=== PATIENT | female | born 1970 | race Caucasian/White ===

== ENCOUNTER 2017-10-06 19:06 | Emergency (ER) | payer OTHER ==
[~2017-10-06] VITALS: Ht 165.1 cm; Wt 104.3 kg
[2017-10-06] MEDS ORDERED: BUPROPION XL150 MG PO (19:22)
[2017-10-06] MEDS ORDERED: ESCITALOPRAM OX20 MG PO (19:23)
[2017-10-06] MEDS ORDERED: SUDOGEST120 MG PO (19:23)
[2017-10-06] MEDS ORDERED: LEVOTHYROXINE150 MCG PO (19:23)
[2017-10-06] MEDS ORDERED: GABAPENTIN300 MG PO (19:23)
[2017-10-06] MEDS ORDERED: HYDROCODON-ACE1 EAC8 PO (19:24)
[2017-10-06] MEDS ORDERED: ZYRTEC10 MG PO (19:24)
[2017-10-06] MEDS ORDERED: ONE DAILY WITH1 EAC1 PO (19:25)
[2017-10-06] MEDS ORDERED: VITAMIN D1000 UNI1 PO ×2 (19:26)
[2017-10-06] MEDS ORDERED: PENICILLIN V P500 MG PO (19:32)
--- OUTSIDE RECORDS SUMMARY | 2017-10-06 19:32 | XMS | Clinical Summary ---
Demographics + + + | Address | [address] | | | [place] [address] | + + + | Home Phone | | + + + | Preferred Language | Unknown | + + + | Marital Status | | + + + | Muslim Affiliation | Unknown | + + + | Race | White | + + + | Ethnic Group | Not or | + + + Author + + + | Author | NON REVENUE LOCATIONS | + + + | Organization | NON REVENUE LOCATIONS | + + + | Address | Unknown | + + + | Phone | Unavailable | + + + Support +------+ + + + +-------+ | Name | Relationship | Address | Phone | +------+ + + + +-------+ ECON | [address] | | [place] | [address] | +------+ + + + +-------+ Care Team Providers + +------+ + | Care Cardiology Consultant Name | Role | Phone | + +------+ + | Camron Fletcher DO | PP | | + +------+ + Source Comments MAN is fully live [facility] and [facility], [facility] Allergies + + + + + + | Active Allergy | Reactions | Severity | Noted | Comments | | | | | Date | | + + + + + + | Piroxicam | Nausea/Vomiting | | 03/20/20 | | | | | | 06 | | + + + + + + | Minocycline | | | 01/30/20 | | | | | | 11 | | + + + + + + Current Medications + + +-------+---------+------+------+-------+ | Prescription | Sig. | Disp. | Refills | Star | End | Statu | | | | | | t | Date | s | | | | | | Date | | | + + +-------+---------+------+------+-------+ | Prasterone, DHEA, | Take by mouth once | | | 07/0 | | Activ | | (DHEA) 25 mg Oral | daily. | | | 20 | | e | | Tablet | | | | 11 | | | + + +-------+---------+------+------+-------+ | CHROMIUM | Take by mouth. 1000 | | | | | Activ | | PICOLINATE ORAL | mcg daily | | | | | e | + + +-------+---------+------+------+-------+ | MAGNESIUM ORAL | Take by mouth. " | | | | | Activ | | | magnesium w/ | | | | | e | | | chelated zinc" | | | | | | | | 400/15 mg , Two | | | | | | | | tabs twice daily | | | | | | + + +-------+---------+------+------+-------+ | MULTIVIT WITH | Take by mouth. | | | | | Activ | | CALCIUM,IRON,MIN | daily | | | | | e | | (ONE-A-DAY WOMENS | | | | | | | | FORMULA ORAL) | | | | | | | + + +-------+---------+------+------+-------+ | ASCORBIC ACID | Take by mouth. 1000 | | | | | Activ | | (VITAMIN C ORAL) | mg twice daily | | | | | e | + + +-------+---------+------+------+-------+ | potassium chloride | Take 8 mEq by mouth | | | | | Activ | | SR (KLOR-CON 10) 10 | once daily. | | | | | e | | mEq Oral Tablet | | | | | | | | Extended Release | | | | | | | + + +-------+---------+------+------+-------+ | | Take 1 Tab by mouth. | | | | | Activ | | HYDROcodone-acetamin | NTE 6 per day | | | | | e | | ophen 10-325 mg Oral | | | | | | | | Tablet | | | | | | | + + +-------+---------+------+------+-------+ | baclofen 10 mg | Take by mouth three | | | | | Activ | | Oral Tablet | times daily. 1-2 | | | | | e | | | tablets three times | | | | | | | | a day as needed | | | | | | + + +-------+---------+------+------+-------+ | levothyroxine | Take 150 mcg by | | | | | Activ | | (LEVOXYL) 150 mcg | mouth once daily. | | | | | e | | Oral Tablet | | | | | | | + + +-------+---------+------+------+-------+ | | Take by mouth once | | | | | Activ | | GUAIFENESIN/P-EPHED | daily. | | | | | e | | HCL (MUCINEX D ORAL) | | | | | | | + + +-------+---------+------+------+-------+ | Cetirizine | Take by mouth once | | | 07/0 | | Activ | | (ZYRTEC) 10 mg Oral | daily. | | | 20 | | e | | Capsule | | | | 11 | | | + + +-------+---------+------+------+-------+ | gabapentin 400 mg | Take 600 mg by mouth | | | 07/2 | | Activ | | Oral Capsule | once daily at | | | 120 | | e | | | bedtime. Takes 3 | | | 11 | | | | | tabs during the day | | | | | | | | and 2 at bedtime | | | | | | + + +-------+---------+------+------+-------+ | escitalopram | Take 20 mg by mouth | | | | | Activ | | oxalate 20 mg oral | once daily. | | | | | e | | tablet | | | | | | | + + +-------+---------+------+------+-------+ Active Problems + + + | Problem | Noted Date | + + + | Major depressive disorder, recurrent episode, mild (HCC) | 03/06/2012 | + + + | Lumbar radiculopathy | 06/13/2011 | + + + | Major depressive disorder, recurrent episode, moderate (HCC) | 04/24/2011 | + + + | Lumbosacral spondylosis without myelopathy | 02/27/2011 | + + + | Failed back syndrome, lumbar | 02/27/2011 | + + + | Radicular pain | 09/24/2006 | + + + | Anxiety | 06/18/2006 | + + + | Hypothyroidism | 06/18/2006 | + + + | Hypercholesterolemia | 06/18/2006 | + + + | Obesity | 06/18/2006 | + + + | LBP (low back pain) | 2006 | + + + Family History + + +------+ + | Medical History | Relation | Name | Comments | + + +------+ + | Allergies | Brother | | | + + +------+ + | GI | Brother | | | + + +------+ + | Alcohol/Drug | Father | | | + + +------+ + | Allergies | Father | | | + + +------+ + | Heart Disease | Father | | | + + +------+ + | Stroke | Maternal | | | | | Grandfath | | | | | er | | | + + +------+ + | Arthritis | Maternal | | | | | Grandmoth | | | | | er | | | + + +------+ + | Additional Family | Mother | | Emphysema | | History | | | | + + +------+ + | Allergies | Mother | | | + + +------+ + | Asthma | Mother | | | + + +------+ + | Heart Disease | Mother | | | + + +------+ + | Thyroid | Mother | | | + + +------+ + | Arthritis | Paternal | | | | | Grandmoth | | | | | er | | | + + +------+ + | Allergies | Sister | | | + + +------+ + | Anesthesia | Sister | | | + + +------+ + | Asthma | Sister | | | + + +------+ + | GI | Sister | | | + + +------+ + | Headache | Sister | | | + + +------+ + | Thyroid | Sister | | | + + +------+ + + +------+--------+ + | Relation | Name | Status | Comments | + +------+--------+ + | Brother | | | | + +------+--------+ + | Father | | | | + +------+--------+ + | Maternal Grandfather | | | | + +------+--------+ + | Maternal Grandmother | | | | + +------+--------+ + | Mother | | | | + +------+--------+ + | Paternal Grandmother | | | | + +------+--------+ + | Sister | | | | + +------+--------+ + Social History + + + +--------+------+ | Tobacco Use | Types | Packs/Day | Years | Date | | | | | Used | | + + + +--------+------+ | Current Every Day | Cigarettes | 1 | | | | Smoker | | | | | + + + +--------+------+ + +---+---+---+ | Smokeless Tobacco: | | | | | Never Used | | | | + +---+---+---+ + + +---------+ + | Alcohol Use | Drinks/We | oz/Week | Comments | | | ek | | | + + +---------+ + | Yes | | | occasiional | + + +---------+ + + + + | Sex Assigned at | Date Recorded | | | | + + + | Not on file | | + + + Last Filed Vital Signs + + + + | Vital Sign | Reading | Time Taken | + + + + | Blood Pressure | 101/74 | 01/09/2012 2:41 PM PDT | + + + + | Pulse | 115 | 01/09/2012 2:41 PM PDT | + + + + | Temperature | 37.2 C (98.9 F) | 07/18/2014 9:00 AM PST | + + + + | Respiratory Rate | 14 | 01/09/2012 2:41 PM PDT | + + + + | Oxygen Saturation | 96% | 03/14/2011 8:05 AM PDT | + + + + | Inhaled Oxygen | - | - | | Concentration | | | + + + + | Weight | 79.4 kg (175 lb) | 07/18/2014 9:00 AM PST | + + + + | Height | 165.1 cm (5' 5") | 07/18/2014 9:00 AM PST | + + + + | Body Mass Index | 29.12 | 07/18/2014 9:00 AM PST | + + + + Plan of Treatment + + + + + | Health Maintenance | Due Date | Last Done | Comments | + + + + + | INFLUENZA VACCINE | | | | | (FLU SHOT) | 7 | | | + + + + + Results Not on filefrom Last 3 Months
--- OUTSIDE RECORDS SUMMARY | 2017-10-06 19:32 | XMS | Clinical Summary ---
Demographics + + + | Address | [address] | | | [place] [address] | + + + | Home Phone | | + + + | Preferred Language | Unknown | + + + | Marital Status | | + + + | Faith Affiliation | Unknown | + + + [...] [address] | | [place] | [address] | +------+ + + + +-------+ Care Team Providers + +------+ + | Care Senior Trainer Name | Role | Phone | + +------+ + | Camron Fletcher DO | PP | | + +------+ + Source Comments [facility] Allergies + + + + + [...]
== END 2017-10-06 20:26 | disposition home or self-care (01) ==
LOC: ED 19:06
DX: S01.511A Laceration without foreign body of lip, initial encounter (principal); Z88.8 Allergy status to other drugs, medicaments and biological substances; Z88.1 Allergy status to other antibiotic agents; Z23 Encounter for immunization; Z79.899 Other long term (current) drug therapy; W20.8XXA Other cause of strike by thrown, projected or falling object, initial encounter; Y93.64 Activity, baseball
CPT/HCPCS: 90471; 90715; 99283

== ENCOUNTER 2019-01-04 16:34 | Inpatient (IN) | payer OTHER ==
[~2019-01-04] VITALS: Ht 165.1 cm; Wt 99.8 kg
[~2019-01-04 16:34] MED LIST: BUPROPION XL150 MG PO; ESCITALOPRAM OX20 MG PO; GABAPENTIN300 MG PO; HYDROCODON-ACE1 EAC8 PO; LEVOTHYROXINE150 MCG PO; ONE DAILY WITH1 EAC1 PO; PENICILLIN V P500 MG PO; SUDOGEST120 MG PO; VITAMIN D1000 UNI1 PO; ZYRTEC10 MG PO
[2019-01-15] MEDS ORDERED: DIPHENHYDRAMINE50 M1 PO (09:07)
[2019-01-15] MEDS ORDERED: FLONASE ALLERG9.9 ML NAS (09:08)
--- NOTE | 2019-01-15 18:45 | NUR ---
01/15/191844 Josselyn Richard 181- PT ARRIVES TO PACU ON 3 L VIA MASK AND IS AWAKE AND RESPONDS TO VERBAL STIMULUS. SURGICAL DRESSING C/D/I. PT HAD GENERAL ANESTHESIA. VSS. SATS >90%. 1823- PT'S VOICE MELINDA REYES AT BEDSIDE TO ADMINSTER RACEMIC EPI NEB TREATEMNT. PT SATS 100% ON RA. PT DROWSY AND DISORIENTED BUT ANSWERS QUESTIONS APPROPRIATELY. PT DENIES PAIN/NAUSEA AND REPORTS NEED TO VOID BUT CATHERTER IN PLACE. 1839- VSS. RA SATS REMAIN >90%. PT MORE AWAKE AND IS EMOTIONAL. PT RESPONDS TO VERBAL STIMULS AND ANSWERS QUESTIONS APPROPRIATELY. PT DENIES PAIN/NAUSEA.
--- NOTE | 2019-01-15 20:35 | NUR ---
FIREPOT OPERATOR AND TENDER ROUNDING NOTE. PT RESTING IN BED WITH SISTER AT BEDSIDE. PRIMARY RN IN ROOM WITH PT. PT EXPRESSING CONCERN REGARDING DISCOMFORT DUE TO CATHETER. PRIMARY RN ADMINISTERED PRN PAIN MEDICATION. PT AND HER SISTER DENY FURTHER NEEDS AT THIS TIME. CALL LIGHT IN REACH.
--- NOTE | 2019-01-15 20:40 | NUR ---
PATIENT COMPLAINED OF BURNING PAIN AT KEITH SITE 9/10 ON PAIN SCALE. PATIENT STATES " I DON'T UNDERSTAND WHY THERE IS A KEITH WHEN I DIDN'T HAVE MESH PLACED" PROVIDED PATIENT WITH REASSURANCE AND EDUCATION, DISCUSSED BED REST ORDER AND THE NEED FOR THE KEITH CATH. PATIENT APPEARS AGITATED AND RESTLESS, SISTER IN ROOM REQUESTING FOR KEITH TO BE REMOVED OR GIVEN NUMBING MEDICINE. DISCUSSED WITH PATIENT AND SISTER THAT NURSE JUST ADMINISTERED OXYCODONE AND PHENERGAN IV, AND SHOULD ALLOW FOR MEDICINE TO WORK. PATIENT VERBALIZED UNDERSTANDING. PROVIDED PATIENT WITH ICE WATER, JELLO, APPLE SAUCE, AND SALTINE CRACKERS.
--- NOTE | 2019-01-15 21:45 | NUR ---
PAIN MEDICAITON EFFECTIVE. PATIENT REPORTS BURNING SENSATION DECREASED TO WAVES AT A TIME. REQUESTING KEITH TO BE REMOVED, ANXIOUS WITH BLOOD IN TUBING. REASSURED PATIENT URINE IS CLEAR, AND THERE IS NO NEW BLOOD IN TUBING. FAMILY IN ROOM, PATIENT LAUGHING AND WATCHING TELVISION. REQUESTED COFFEE, PROVIDED HER AND FAMILY COFFEE. VS STABLE. NO NEW BLOODY DRAINAGE IN VAGINAL AREA. WIPED OLD BLOOD AWAY. REASSURED PATIENT IS HAVING POST OP SURGICAL PAIN SYMPTOMS.
--- NOTE | 2019-01-15 22:35 | NUR ---
patient used call light to state she was hungry. Her diet is now regular diet. She recieved a sandwich box and a sherbert ice cream cup. nothing further needed at this time.
--- NOTE | 2019-01-15 22:37 | NUR ---
RADHA Ramirez completed VS and I&Os.
--- NOTE | 2019-01-15 22:53 | NUR ---
PATIENT RATES PAIN 2/10 ON PAIN SCALE. LAUGHING AND EATING THE HOSPITAL'S LUNCH BOX SPECIAL. PROVIDED PATIENT WITH COKE AND FRESH ICE WATER. VS STABLE. URINE OUTPUT GOOD. NO NEW BLOODY DRAINAGE. DISCUSSED POC AND PAIN MANAGEMENT GOALS AND PLAN. NO OTHER NEEDS AT THIS TIME. CALL LIGHT WITHIN REACH.
--- NOTE | 2019-01-16 01:06 | NUR ---
PATIENT DRINKING FLUIDS WELL AND TOLERATING SOLID FOODS. CHANGED DIET ORDER TO REGULAR AND DC IV FLUIDS. ADMINISTERED PAIN MEDICATION FOR PAIN 5/10 ON PAIN SCALE. NOTED CLEAR YELLOW URINE FROM KEITH. DRESSING TO BREAST C/D/I.
--- NOTE | 2019-01-16 02:00 | NUR ---
PATIENT TURNED TO SIDE, DRESSING AT UNBILICUS SATURATED. CHANGED WITH NEW GAUZE AND MEDIPORE TAPE. PROVIDED PATIENT WITH HEAT PACK FOR BACK,COMPLAINTS OF BED BEING UNCOMFORTABLE AND CAUSING CHRONIC BACK PAIN TO INCREASE. PROVIDED ICE WATER AND COLA.
--- NOTE | 2019-01-16 05:45 | NUR ---
PATIENT RESTED WELL LAST FEW HOURS, REQUESTING PAIN MEDICATION. CONTINUES TO TOLERATE REGULAR FOODS, AND PLENTY OF FLUIDS. GOOD URINE OUTPUT. DRESSING C/D/I TO ALL FOUR SITES. CALL LIGHT WITHIN REACH, NO OTHER NEEDS AT THIS TIME.
--- NOTE | 2019-01-16 06:20 | NUR ---
patients VS and I&Os complete.
--- NOTE | 2019-01-16 06:35 | NUR ---
PATIENT SURGICAL SITES TO ABDOMEN C/D/I, REINFORCED SITE AT UBILICUS ONCE. PATIENT PAIN WELL CONTROLLED WITH OXYCODONE. TOLERATING REGULAR FOOD. KEITH CATHETER, CLEAR YELLOW URINE. VS STABLE. CALLS APROPRIATLEY. AAOX3. CURRENT ORDER FOR BEDREST.
--- NOTE | 2019-01-16 07:46 | NUR ---
REPORT RECEIVED FROM JIGMAKER RN. PT AWAKE IN BED. DENIES PAIN. CALL LIGHT IN REACH. DENEIS NEEDS.
--- NOTE | 2019-01-16 08:13 | NUR ---
UPDATED BOARD AND FILLED PATIENTS WATER CUP WITH ICE WATER, PATIENT DIDNT NEED ANY ASSISTANCE AT THIS TIME WILL RECHECK.
--- NOTE | 2019-01-16 08:24 | OR ---
[facility] [address], [place] [address] Signed DATE OF OPERATION: 01/15/2019 SURGEON: Kody Kendall MD PREOPERATIVE DIAGNOSIS: Left palpable breast masses x4. POSTOPERATIVE DIAGNOSIS: Left palpable breast masses x4. PROCEDURE PERFORMED: Left upper outer quadrantectomy/partial mastectomy. ESTIMATED BLOOD LOSS: None. INDICATIONS: Brandy is a 48-year-old lady, at 5 feet 5 inches, 219 pounds with a body mass index of 36. I have known Brandy for years through her sons playing sports together and so forth. 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 This was in 2008. She has had previous excisional biopsies back in 1998 and 2004. Each time the circum, there was a curvilinear incision used from around the 12 o'clock to about the 3 o'clock position about 2 cm cephalad to the left nipple areolar complex. She now has 4 concerning areas in that same breast, 3 of which seemed to be together. The others more towards the 11 o'clock position. Radiologist felt these were too large in that the same area and be too high. Consequently, I was asked to perform excisional biopsies. In the meantime, Brandy has also seen her insulation nozzleman and is planning on having her hysterectomy and bladder suspension. She wanted to have him both done on the same day. In the office, I could certainly feel these 3 masses in the upper outer quadrant, but the mass at the 11 o'clock position really was not palpable. I explained to Brandy we would look for that at the time of surgery once the skin was opened and hopefully we could find it and excise it. Otherwise, it might need a needle biopsy in the future if it would change whatsoever in size and in character. Brandy has been through multiple breast surgeries. I explained to Brandy that this is large enough she may end up with a contour defect depending on intraoperative findings. She is also aware that if someone has enough of fibroadenomas, they may benefit from a full mastectomy with reconstruction. She understands these are excision biopsies and not meant to be cancer surgery. Depending on pathology results, she may or may not need additional surgery. I explained to Brandy I probably will use an incision extending up the outer quadrant towards the axilla and Electronically Signed By: KODY KENDALL MD 01/16/19 0824 PATIENT NAME: BRANDY LANZA OPERATIVE REPORT DATE OF : 74 REPORT #: [id number] PHYSICIAN: KODY KENDALL MD PCP: NO PRIMARY CARE PHYSICIAN REPORT IS CONFIDENTIAL AND NOT TO BE RELEASED WITHOUT AUTHORIZATION [facility] [address], [place] [address] Signed that where I could bring the inferior portion of the breast up and help fill in the space. She understands breast surgery quite well. She has been through it several times. She knows there is risk including, but not limited to bleeding, infection, scarring, change in contour of the skin, and possible need for additional procedures. She expressed understanding and wished to proceed. PROCEDURE NOTE: I met with Brandy in our preop area along with our nurse. Once again, we could easily find this large mass in the upper outer quadrant representing probably 3 of those lesions. Once again, we could not feel a lesion at the 11 o'clock position. We marked that left breast appropriately. After this, Brandy was taken in the operating room and placed in the supine position under general endotracheal tube anesthesia. She was given preoperative antibiotics along with subcutaneous heparin. SCDs were utilized. She was then prepped and draped in the usual sterile fashion. We made a radial incision out the upper outer quadrant towards the axilla over top of that mass and we excised this large multilobulated lesion, which appeared to be a fibroadenoma. After that, there was a bilobed fibroadenoma just inferior to that and we excised that and then on the medial side, we found a palpable lesion. We excised that sure enough it was cystic and that might very well then the lesion described at 11 o'clock position. After this, local anesthetic was copiously injected in the wound. The wound was irrigated and suctioned out until clear. We used 2-0 PDS suture to bring the breast tissue together and minimize the space. The dermis was then reapproximated with interrupted 3-0 subcuticular Monocryl sutures. The skin edges were reapproximated with running 6-0 fast absorbing plain gut suture. Dry gauze and tape were then applied. This represents the termination of her breast surgery. Her gynecologic surgery will be dictated by Dr. Terrell. Kody Kendall MD ALB/MODL /[id number] cc: MD Kody White MD Electronically Signed By: KODY KENDALL MD 01/16/19 0824 PATIENT NAME: BRANDY LANZA OPERATIVE REPORT DATE OF : 74 REPORT #: [id number] PHYSICIAN: KODY KENDALL MD PCP: NO PRIMARY CARE PHYSICIAN REPORT IS CONFIDENTIAL AND NOT TO BE RELEASED WITHOUT AUTHORIZATION [address] [address] Signed Ashley Rocha MD Copies: VIMAL TERRELL MD, ANDREW L MD ~ Electronically Signed By: KODY KENDALL MD 01/16/19823 PATIENT NAME: BRANDY LANZA OPERATIVE REPORT DATE OF : 74 REPORT #: [id number] PHYSICIAN: KODY KENDALL MD PCP: NO PRIMARY CARE PHYSICIAN REPORT IS CONFIDENTIAL AND NOT TO BE RELEASED WITHOUT AUTHORIZATION
--- NOTE | 2019-01-16 08:58 | NUR ---
ROUNDED WITH DR MENDEZ. PLAN OF CARE DISCUSSED. QUESTIONS AND CONCERNS ADRESSED.
--- NOTE | 2019-01-16 09:07 | OR ---
[facility] [address] [place] [id number] Signed DATE OF OPERATION: 01/15/2019 SURGEON: See Terrell MD Patient of Dr. Terrell and Dr. Bosch. PREOPERATIVE DIAGNOSES: Uterine fibroids, heavy menstrual bleeding, pelvic pain, dysmenorrhea, and stress urinary incontinence. POSTOPERATIVE DIAGNOSES: Uterine fibroids, heavy menstrual bleeding, pelvic pain, dysmenorrhea, and stress urinary incontinence, worsening cystocele and rectocele. PROCEDURES PERFORMED: Total laparoscopic hysterectomy with bilateral salpingectomy, left oophorectomy, and cystoscopy. SAS PROGRAMMER ANALYST: Dr. Solano. ANESTHESIA: General. ESTIMATED BLOOD LOSS: 100 mL. SPECIMEN: Fibroid uterus plus fallopian tubes. CULTURES: None. DRAINS: Gibson to bladder. PACKING: Sterile gauze with antibiotic cream in the vagina. FINDINGS: Electronically Signed By: SEE TERRELL MD 01/16/19 0907 PATIENT NAME: CLAUDIO LANZA OPERATIVE REPORT DATE OF : 74 REPORT #: [id number] PHYSICIAN: SEE TERRELL MD PCP: NO PRIMARY CARE PHYSICIAN REPORT IS CONFIDENTIAL AND NOT TO BE RELEASED WITHOUT AUTHORIZATION [facility] [address] [place] [phone] Signed Cervix, thick, closed. Uterus, 12-week size fibroid uterus taking up most of the pelvis. The anterior cul-de-sac was free of any adhesions, posterior cul-de-sac was free of any adhesions, difficult to see due to the fibroids. The left fallopian tube had normal fimbriated end. Midportion of the tube was missing with a small Falope ring present from previous tubal ligation. The left ovary was adherent to the side of the uterus along its entire length. There were no other adhesions. The right tube was normal in length, again with midportion of the tube missing and the Falope ring present. Right ovary normal in size and shape without any evidence of endometriosis or adhesions. Rest of pelvis was free of any masses or adhesions. There was slight hypermobile urethra, but bladder and rectum did not appear to be descending with the cervix up high, probably due to the fibroid uterus. COMPLICATIONS: None. Additional note: Excisional breast biopsies were done by Dr. Bosch during the same anesthesia, but prior to this surgery, please see his dictation for that part of the procedure. DESCRIPTION OF PROCEDURE: The patient was brought to the operating room, placed in supine position. After adequate general anesthesia was obtained, was prepped and draped in usual sterile fashion. After Dr. Bosch finished with breast biopsies, the patient was re-prepped and was placed in dorsal lithotomy position, prepped and draped in usual sterile fashion. A bimanual exam was done and then a weighted speculum was placed in the vagina. The patient has a Gibson catheter already in place. The anterior lip of the cervix was grasped with an Allis clamp. The uterine cavity sounded to 12 cm. The Marco Vasco uterine manipulator was inserted through the cervix into the fundus of the uterus and the balloon filled with water. The Allis clamp and weighted speculum were removed and the cervical cap slid up around the cervix and the vaginal cup slid up and pushed up against the cervical cap to hold this against the cervix and the vaginal cup tightened in place. A finger was used to palpate and make sure the cervical cap was in the correct place and position around the cervix. Attention was then drawn to the abdomen. A small infraumbilical skin incision was made after injecting area with 0.25% Marcaine. Subcutaneous tissue was dissected with Metzenbaum scissors. The fascia was grasped, hemostats elevated, nicked with Metzenbaum scissors, and extended in a transverse fashion using Metzenbaum scissors. Finger dissection was then used to separate the muscle and open the peritoneum. An S retractor was inserted into the incision and spun in 360 degree fashion showing no adhesions and so the Jin cannula and sleeve entered the abdomen under direct visualization. Retention stitches of 0 Vicryl suture were Electronically Signed By: SEE TERRELL MD 01/16/19 0907 PATIENT NAME: CLAUDIO LANZA OPERATIVE REPORT DATE OF : 74 REPORT #: [id number] PHYSICIAN: SEE TERRELL MD PCP: NO PRIMARY CARE PHYSICIAN REPORT IS CONFIDENTIAL AND NOT TO BE RELEASED WITHOUT AUTHORIZATION [facility] [address] [place] [id number] Signed placed in the fascia above and below the incision. The Jin cannula and sleeve entered the abdomen under direct visualization. After removing S retractor, the balloon of the sleeve was filled with air and the other portion slid down against the abdominal wall and tightened in place. The two retention stitches were then used to hold the sleeve in place and the trocar removed. The laparoscope with video attachment entered the abdomen under direct visualization. The above findings were noted. On the left side, just below the level of the umbilicus approximately 10 cm lateral to the midline, a small skin incision was made with a scalpel after transilluminating the area to avoid any vessels injecting the area with 0.25% Marcaine making a small skin incision. A bladed 5-mm trocar and sleeve entered the abdomen under direct visualization. Trocar was removed and the balloon of the sleeve filled to hold the trocar in place. On the right side, again just below the level of the umbilicus, approximately 10 cm lateral to the midline, abdominal wall was transilluminated to avoid any vessels. Skin incision was made and a Veress needle with expandable sleeve entered the abdomen under direct visualization. The Veress needle was removed and expandable 10 mm trocar and sleeve was placed through the expandable sleeve and the trocar removed. Blunt graspers were inserted through both lateral incisions and the entire pelvis inspected and the above findings again confirmed. The two fallopian tubes were removed by carefully grasping the fallopian tube, elevating this, and then cauterizing and cutting the mesosalpinx using the LigaSure Bipolar [place] forceps, both tubes and the Falope rings attached were removed and pulled through the right lateral port. At this point, the right upper pedicle including the round ligament, utero-ovarian ligament were cauterized in several places individually and cut between. This was taken down to the broad ligament and then the anterior and posterior leaves of broad ligament cauterized and cut down the side of the broad ligament and extending medially anterior and posterior at the level of the cervical cap. On the left side, the ovary was noted to be densely adherent to the uterus and so it was decided this side would be removed. So, the infundibulopelvic ligament was cauterized and cut again using the LigaSure, bipolar forceps. The round ligament and upper broad ligament were also cauterized and cut, and then the anterior and posterior leaves of the broad ligament cauterized and cut on the left side going down the midportion of the broad ligament and connecting with previous dissection. On both sides, the uterine vessels were cauterized in several places and cut making sure to stay inside the cervical cap to avoid the ureters. With the uterine vessels controlled, the paravaginal tissue within the cup was cauterized and cut to remove any smaller vessels until just the vaginal wall remained. The Sonicision was then used to open the vaginal wall in the groove of the cervical cap at the midline posterior cul-de-sac and this was then taken up in the groove of the cervical cap on the right side from posterior to anterior to the midline, and then posterior to anterior on the left side to the midline, thus removed the uterus and cervix from the vagina. The laparoscope was then placed in the right port and a large endobag placed through the infraumbilical port and the uterus lifted and then placed in the endoscopic bag and the bag ends pulled out through the infraumbilical incision after removing the Parrish sleeve. The fascia of the Electronically Signed By: SEE TERRELL MD 01/16/19 0907 PATIENT NAME: CLAUDIO LANZA OPERATIVE REPORT DATE OF : 74 REPORT #: [id number] PHYSICIAN: SEE TERRELL MD PCP: NO PRIMARY CARE PHYSICIAN REPORT IS CONFIDENTIAL AND NOT TO BE RELEASED WITHOUT AUTHORIZATION [facility] [address] [place] [id number] Signed infraumbilical incision was carefully extended another 0.5 cm using Metzenbaum scissors under direct visualization, and a small Efe expandable sleeve placed through the incision in the laparoscopic bag and tightened in place to gently enlarge the incision. The ExCITE technique was then used to grasp the uterus through the incision with the tenaculum and using a scalpel to cut long pieces of the uterus out by pulling the uterus out and cutting at the opening, so that no cutting was done inside the patient, and small diameter pieces could be removed in long sections and this was continued until the entire uterus was removed. The pouch and expandable sleeve were then removed from the incision. Then, the Jin cannula and sleeve placed back in the abdomen and reattached as before and the trocars removed and the laparoscope placed through the midline incision. The entire pelvis was irrigated, suctioned, and examined. A small amount of bleeding at the left angle, this was done by carefully isolating the vessel and cauterizing it with the LigaSure, bipolar forceps. When good hemostasis was obtained, the cuff was closed using the Endostitch in barbed suture. Each stitch was placed posterior to anterior and individually grasping the posterior edge of the vagina, then the anterior edge of the vagina. This was started at the right angle at the right uterosacral ligament and with the first stitch, the suture was placed through the loop at the end of the barbed suture to lock it in place and then the incision was carried from the right side to the left side up to the left uterosacral ligament, staying within the uterosacral ligaments again to avoid the ureters. After reaching the left side, the stitch was taken back superficially to the midline to lock the barbed suture in place. The suture was then cut with laparoscopic scissors. Entire pelvis was irrigated, suctioned, examined, noted to have good hemostasis. Evicel was then placed along the entire dissection line over the cuff and both sides to help further hemostasis. The gas was allowed to escape and the entire area observed under low pressure and good hemostasis was noted. At this point, the laparoscope was removed. All the gas was allowed to remove and all sleeves were removed. The infraumbilical fascia was closed using running stitch of 0 Vicryl suture. The retention stitches were tied together for further support of the fascia. The 3 skin incisions were then closed using subcuticular stitches of 4-0 Vicryl suture. The sling procedure was then started with the vaginal mucosa opened along the midline over the urethra, and Metzenbaum scissors used to undermine the vaginal mucosa along each side. However, at this point, it was noticed that the Sling equipment had and there was no equipment to do the sling procedure. It was also noted that the cystocele and rectocele, which were not obvious preoperatively were worse and because the patient probably needs further surgery for the bladder and rectum, it was decided to not to continue with the sling and to allow the patient to have all the bladder and vaginal repair done at the same time if needed. So, at this point Ezekiel-seal was inserted in the vaginal incision to Electronically Signed By: SEE TERRELL MD 01/16/19 0907 PATIENT NAME: CLAUDIO LANZA OPERATIVE REPORT DATE OF : 74 REPORT #: [id number] PHYSICIAN: SEE TERRELL MD PCP: NO PRIMARY CARE PHYSICIAN REPORT IS CONFIDENTIAL AND NOT TO BE RELEASED WITHOUT AUTHORIZATION [address] [address] Signed help control hemostasis and then the small incision closed using running stitch of 2-0 Vicryl suture. Good hemostasis was noted. The vagina was then packed with small amount of antibiotic soaked gauze for further hemostasis and the procedure stopped. The patient tolerated the procedure well, went to recovery room in good condition. The sponge, needle, and instrument count was correct at end of the procedure. MD CHEPE White/MODL /[id number] Copies: ~ Electronically Signed By: SEE TERRELL MD 01/16/19 0907 PATIENT NAME: CLAUDIO LANZA OPERATIVE REPORT DATE OF : 74 REPORT #: [id number] PHYSICIAN: SEE TERRELL MD PCP: NO PRIMARY CARE PHYSICIAN REPORT IS CONFIDENTIAL AND NOT TO BE RELEASED WITHOUT AUTHORIZATION
--- NOTE | 2019-01-16 09:07 | NUR ---
INNA ALCARAZ'D PER ORDER. ORDERS FOR POST VOID RESIDUALS TO BE DONE.
--- NOTE | 2019-01-16 10:00 | NUR ---
PT UP TO BATHROOM. VOIDED 100ML. BLADDER SCAN FOR 8ML.
[2019-01-16] MEDS ORDERED: PERCOCET 5-3251 EACH PO (10:12)
[2019-01-16] MEDS ORDERED: IBUPROFEN800 MG PO (10:13)
--- NOTE | 2019-01-16 10:51 | NUR ---
PT UP TO VOID 50 ML. BLADDER SCAN FOR 0 MLS. PT REPORTING ABDOMINAL PAIN, PRN PAIN MEDICAION GIVEN. CALL LIGHT IN REACH
--- NOTE | 2019-01-16 13:44 | NUR ---
DRESSING TO LEFT BREAST DC'D PER DR ORDER. PT TOLERATED WELL. INCISION WELL APPROXIMATED WITH SUTURES IN PLACE. NO S/SX ON LOCAL INFECTION.
== END 2019-01-16 13:40 | disposition home or self-care (01) | DRG 743 ==
LOC: MS 01-15 08:50 → DS 01-15 08:50 → EDSTATUS 01-15 09:45 → DS 01-15 09:45 → MS 01-15 19:00 → DS 01-15 19:00 → MS 01-16 13:40 → DS 01-16 13:40
PROVIDERS: Colon & Rectal Surgery; ADMIT General Practice
PROC: 0HBU0ZZ Excision of Left Breast, Open Approach (ICD-10-PCS; 2019-01-15)
PROC: 0UT9FZZ Resection of Uterus, Via Natural or Artificial Opening With Percutaneous Endoscopic Assistance (ICD-10-PCS; principal; 2019-01-15 09:45)
PROC: 0UT7FZZ Resection of Bilateral Fallopian Tubes, Via Natural or Artificial Opening With Percutaneous Endoscopic Assistance (ICD-10-PCS; 2019-01-15 09:45)
PROC: 0UT1FZZ Resection of Left Ovary, Via Natural or Artificial Opening With Percutaneous Endoscopic Assistance (ICD-10-PCS; 2019-01-15 09:45)
PROC: 0TSD0ZZ Reposition Urethra, Open Approach (ICD-10-PCS; 2019-01-15 09:45)
DX: D25.9 Leiomyoma of uterus, unspecified (principal); N94.5 Secondary dysmenorrhea; N92.0 Excessive and frequent menstruation with regular cycle; N39.3 Stress incontinence (female) (male); N81.10 Cystocele, unspecified; F17.210 Nicotine dependence, cigarettes, uncomplicated; E03.9 Hypothyroidism, unspecified; F32.9 Major depressive disorder, single episode, unspecified; N63.21 Unspecified lump in the left breast, upper outer quadrant; E78.00 Pure hypercholesterolemia, unspecified; M54.9 Dorsalgia, unspecified; G89.29 Other chronic pain; Z79.891 Long term (current) use of opiate analgesic; Z79.51 Long term (current) use of inhaled steroids; Z79.899 Other long term (current) drug therapy; Z88.3 Allergy status to other anti-infective agents; Z88.8 Allergy status to other drugs, medicaments and biological substances
CPT/HCPCS: 00944; J0330; J0690; J1100; J1644; J1885; J2250; J2270; J2405; J2550; J2704; J2765; J3010; J7120

== ENCOUNTER 2020-08-02 06:14 | Day surgery (SDC) | payer OTHER ==
[~2020-08-02] VITALS: Ht 165.1 cm; Wt 100.0 kg
[~2020-08-02 06:14] MED LIST changes: +AMITRIPTYLINE150 MG PO; +DIPHENHYDRAMINE50 M1 PO; +FLONASE ALLERG9.9 ML NAS; +IBUPROFEN800 MG PO; +MOBIC15 MG PO; +OMEPRAZOLE20 MG PO; +PERCOCET 5-3251 EACH PO; +ZOFRAN4 MG PO
--- NOTE | 2020-08-02 08:47 | NUR ---
PT ALERT, ORIENTED AND SUPPORTED BY HER DAUGHTER. PT PLEASANT, FIRST SCOPES OF ANY KIND. PREP SEEMED TO BE MANAGABLE, ALL QUESTIONS ASKED ANSWERED. PT DID REQUEST PRAYER, WILL FOLLOW
--- NOTE | 2020-08-02 09:41 | NUR ---
[facility]20 [facility]41 [facility] AR[facility]IVED IN PACU SLEEPY WITH NO C/O'S. ABD SOFT. 0905 C/O NEED FOR BATHROOM. UP TO BATHROOM WITH ONE PERSON ASSIST. VOIDED AND PASSING GAS WHILE UP. BACK IN BED GETTING DRESSED. 15 PT DRESSED. DC INSTRUCTIONS GIVEN. ALL QUESTIONS ANSWERED. BACK TO BATHROOM WITH ONE PERSON ASSIST. VOIDED, PASSING GAS AND LIQUID STOOL. 921 LEFT VIA W/C.
--- NOTE | 2020-08-02 15:14 | OR ---
[facility] [address] [place], [place] [address] Signed DATE OF OPERATION: 08/02/2020 SURGEON: Kody Kendall MD PREOPERATIVE DIAGNOSES: 1. Generalized abdominal pain. 2. Bloating. 3. Change in bowel habits with constipation after starting amitriptyline. 4. Family history of ulcerative colitis. 5. Daily marijuana use. POSTOPERATIVE DIAGNOSES: 1. Mild diffuse hemorrhagic gastritis. 2. Wapfild-sb-htoaidbw internal hemorrhoids. PROCEDURES: 1. Esophagogastroduodenoscopy with CLOtest and biopsies of the duodenum, antrum, and GE junction. 2. Colonoscopy with random cold biopsies throughout the colon. ESTIMATED BLOOD LOSS: None. INDICATIONS: Brandy is a 50-year-old female asked to see me for upper and lower endoscopy. She is describing generalized abdominal pain and bloating; however, she thinks epigastric region and the periumbilical regions may be worse. She has noticed a change in bowel habits with constipation when she started her amitriptyline, that is actually quite common. She stopped taking the hydrocodone and switched over to meloxicam and daily marijuana. Her symptoms have not markedly improved. We know there is a family history of ulcerative colitis as well. She went up to the GI group in [place], [place]. Her initial evaluation was started, but there has been a large turn over that group. Consequently, they have asked her to see me for the upper and lower endoscopy. In the meantime, she had a CT scan of the abdomen and pelvis, which was unremarkable in 2019. I gave Brandy a pamphlet on upper and lower endoscopy. We reviewed that together in detail. She understands the nature of the two tests. She understands there is risk including, but not limited to gas bloating, crampy abdominal pain, bleeding, perforation requiring surgery, and missed diagnosis. We did have her usual bowel prep, but today her prep was less than optimal. She probably should take a double bowel prep in the future. In addition, she has a very full round face, heavy neck, and significant Electronically Signed By: KODY KENDALL MD 08/02/20 1514 PATIENT NAME: BRANDY LANZA OPERATIVE REPORT DATE OF : 74 REPORT #: [id number] PHYSICIAN: KODY KENDALL MD PCP: ASHLEY NAJERA MD REPORT IS CONFIDENTIAL AND NOT TO BE RELEASED WITHOUT AUTHORIZATION [facility] [address] [place], [place] [address] Signed medical history. Consequently, we asked the anesthesia provider help us with increased monitoring sedation with propofol. That proved to be a jain decision as she needed medication beyond propofol, including ketamine. It was quite difficult to get her to hold still for both the upper and lower endoscopy. She had expressed understanding and wished to proceed. DESCRIPTION OF PROCEDURE: Brandy was taken into our endoscopy suite and placed in the supine semi-recumbent position. She was given IV sedation per nurse sneller hand. This included propofol, ketamine, and others. The posterior oropharynx was anesthetized with lidocaine spray. A bite block was utilized for the upper endoscopy. The adult gastroscope was introduced and advanced into the third portion of the duodenum under direct visualization of camera without difficulty. Her duodenal and pyloric channel were unremarkable. We went ahead and took a biopsy of the duodenum and distal stomach due to her symptoms. She also had a biopsy from her antrum for CLOtest. The stomach showed some very mild diffuse hemorrhagic gastritis. No ulcerations. The scope was then retroflexed. We did not appreciate an obvious hiatal hernia. The scope was withdrawn up through the area of the GE junction, which was compliant without stricture. There was no gastric or esophageal varices. The Z-line remains intact. There was no Blevins's mucosa, no distal esophagitis. We went ahead and took a biopsy along the Z-line for pathologic review. Her distal middle and upper esophagus were unremarkable. After this, the gas was suctioned out, the gastroscope removed. Brandy tolerated her upper endoscopy quite well. Brandy was rotated into the left lateral decubitus position. She was maintained on IV sedation with propofol and ketamine per nurse sneller hand. A digital rectal exam was performed and this was unremarkable. She has good sphincter tone. The adult colonoscope was introduced and advanced under direct visualization of the camera. It took quite a bit of sedation in order to advance camera. Even then she was moved around quite a bit. She had multiple areas of liquid particulate stool matter. We did our best to suction those areas out without much success. We were able to pass the scope in all around into the cecum. The cecum was heavily laden with particulate liquid stool matter. We did some irrigation, but again we simply clogged our scope. Consequently, we could not see the base of the cecum. We did not turn the scope up into the ileocecal valve because of the poor prep and the poor visualization; however, we could see the ileocecal valve. We went ahead and took pictures for photodocumentation. The scope was slowly withdrawn. We took several random biopsies throughout the colon for pathologic review. We saw no inflammatory changes, no polyps, and no diverticulosis. There were no masses or tumors noted. The rectum itself was unremarkable. Upon retroflexion of scope, she did have a [id number] sized internal hemorrhoid column. After this, the gas was suctioned out. The colonoscope removed. Overall, Brandy tolerated the procedure well. Electronically Signed By: KODY KENDALL MD 08/02/20 1514 PATIENT NAME: BRANDY LANZA OPERATIVE REPORT DATE OF : 74 REPORT #: [id number] PHYSICIAN: KODY KENDALL MD PCP: ASHLEY NAJERA MD REPORT IS CONFIDENTIAL AND NOT TO BE RELEASED WITHOUT AUTHORIZATION [address] [address] Signed RECOMMENDATIONS: I will see Brandy back in my office in 7 to 14 days to review her results. MD ANNE Andrade/MODL /[id number] cc: MD Ashley Hyman MD Andrew L Bower, MD Copies: MELCHOR MORENO MD, ANDREW L MD ~ Electronically Signed By: KODY KENDALL MD 08/02/20 1514 PATIENT NAME: BRANDY LANZA OPERATIVE REPORT DATE OF : 74 REPORT #: [id number] PHYSICIAN: KODY KENDALL MD PCP: ASHLEY NAJERA MD REPORT IS CONFIDENTIAL AND NOT TO BE RELEASED WITHOUT AUTHORIZATION
--- NOTE | 2020-08-04 15:22 | PATH ---
[facility] [address] [facility] [place], [place] [address] Signed SPECIMEN(S): A DUODENUM SPECIMEN(S): B ANTRUM SPECIMEN(S): C GE JUNCTION SPECIMEN(S): D ASCENDING COLON SPECIMEN(S): E TRANSVERSE COLON SPECIMEN(S): F SPLENIC FLEXURE COLON SPECIMEN SOURCE: A. DUODENUM B. ANTRUM C. GE JUNCTION D. ASCENDING COLON E. TRANSVERSE COLON F. SPLENIC FLEXURE COLON CLINICAL HISTORY: C/o abdominal pain with bloating, change in bowel habits. MICROSCOPIC DESCRIPTION: Histologic sections of all submitted blocks are examined by light microscopy. These findings, together with the gross examination, support the pathologic diagnosis. FINAL PATHOLOGIC DIAGNOSIS: A. Duodenum, biopsy: - Benign duodenal mucosa; negative for specific diagnostic abnormality. B. Antrum, biopsy: - Benign gastric antral type mucosa with slight reactive features and slight chronic inflammation. - Negative for evidence of Helicobacter organisms on routine HE-stained sections. C. GE junction, biopsy: - Esophageal mucosa with reactive features; negative for increased eosinophils. - Negative for glandular mucosa. D. Ascending colon, biopsy: - Benign polypoid colonic mucosa; negative for pathologic inflammation or definite dysplasia. E. Transverse colon, biopsy: - Benign polypoid colonic mucosa; negative for pathologic inflammation or definite dysplasia. F. Splenic flexure of colon, biopsy: PATIENT NAME: BRANDY SENIOR PATHOLOGY DATE OF : 74 REPORT #: [id number] PHYSICIAN: DARYL PATHOLOGY PCP: ISABEL NAJERA MD REPORT IS CONFIDENTIAL AND NOT TO BE RELEASED WITHOUT AUTHORIZATION [facility] [address] [place], [place] [address] Signed - Benign polypoid colonic mucosa; negative for pathologic inflammation or definite dysplasia. JVR:julito:[id number] GROSS DESCRIPTION: Six specimens are received in six containers, labeled "Brandy Senior." A. The specimen, labeled "Brandy Senior, #1," and designated on the requisition "duodenum biopsy," is received in formalin and consists of two grant soft tissue fragment(s) that measure 0.3 and 0.3 cm in greatest dimension. The specimen is entirely submitted in cassette (A1). B. The specimen, labeled "Brandy Senior, #2," and designated on the requisition "antrum biopsy," is received in formalin and consists of one grant soft tissue fragment that measures 0.4 cm in greatest dimension. The specimen is entirely submitted in cassette (B1). C. The specimen, labeled "Brandy Senior, #3," and designated on the requisition "GE junction biopsy," is received in formalin and consists of two white-grant soft tissue fragment(s) that measure 0.2 and 0.6 cm in greatest dimension. The specimen is entirely submitted in cassette (C1). D. The specimen, labeled "Brandy Senior, #4," and designated on the requisition "ascending colon biopsy," is received in formalin and consists of one grant soft tissue fragment that measures 0.4 cm in greatest dimension. The specimen is entirely submitted in cassette (D1). E. The specimen, labeled "Brandy Senior, #5," and designated on the requisition "transverse colon biopsy," is received in formalin and consists of one grant soft tissue fragment that measures 0.3 cm in greatest dimension. The specimen is entirely submitted in cassette (E1). F. The specimen, labeled "Brandy Senior, #6," and designated on the requisition "splenic flexure biopsy," is received in formalin and consists of one grant soft tissue fragment that measures 0.4 cm in greatest dimension. The specimen is entirely submitted in cassette (F1). FB (under the direct supervision of a pathologist) The Gross Description was prepared using a voice recognition system. The report was reviewed for accuracy; however, sound-alike word errors, addition and/or deletions may occur. If there is any question about this report, please contact Client Services. PERFORMING LABORATORY: The technical component was performed by [facility], [address] [place] [id number] (Display Department Manager: Keila Villalobos MD; CLIA# [id number]). PATIENT NAME: BRANDY SENIOR PATHOLOGY DATE OF : 74 REPORT #: [id number] PHYSICIAN: DARYL MAYORGA PCP: ISABEL NAJERA MD REPORT IS CONFIDENTIAL AND NOT TO BE RELEASED WITHOUT AUTHORIZATION [address] [address] Signed Professional interpretation was performed by [facility] [place] [address]. Diagnostician: Andrzej Seay MD Pathologist Electronically Signed 08/04/2020 Copies: ~ PATIENT NAME: MYLABRANDYTERA GOMEZ PATHOLOGY DATE OF : 74 REPORT #: [id number] PHYSICIAN: DARYL AMYORGA PCP: ISABEL NAJERA MD REPORT IS CONFIDENTIAL AND NOT TO BE RELEASED WITHOUT AUTHORIZATION
== END 2020-08-02 09:22 | disposition home or self-care (01) ==
LOC: OPS 06:14 → DS 06:14 → OPS 06:45 → DS 07:30 → OPS 09:22
PROVIDERS: ATTEND Colon & Rectal Surgery
PROC: 0DB48ZX Excision of Esophagogastric Junction, Via Natural or Artificial Opening Endoscopic, Diagnostic (ICD-10-PCS; 2020-08-02)
PROC: 0DBK8ZX Excision of Ascending Colon, Via Natural or Artificial Opening Endoscopic, Diagnostic (ICD-10-PCS; 2020-08-02)
PROC: 0DBL8ZX Excision of Transverse Colon, Via Natural or Artificial Opening Endoscopic, Diagnostic (ICD-10-PCS; 2020-08-02)
PROC: 0DB98ZX Excision of Duodenum, Via Natural or Artificial Opening Endoscopic, Diagnostic (ICD-10-PCS; principal; 2020-08-02 06:45)
PROC: 0DB78ZX Excision of Stomach, Pylorus, Via Natural or Artificial Opening Endoscopic, Diagnostic (ICD-10-PCS; 2020-08-02 06:45)
DX: K29.51 Unspecified chronic gastritis with bleeding (principal); D12.2 Benign neoplasm of ascending colon; D12.3 Benign neoplasm of transverse colon; K64.8 Other hemorrhoids; K21.9 Gastro-esophageal reflux disease without esophagitis; E78.00 Pure hypercholesterolemia, unspecified; E03.9 Hypothyroidism, unspecified; F32.9 Major depressive disorder, single episode, unspecified; F17.210 Nicotine dependence, cigarettes, uncomplicated; Z79.1 Long term (current) use of non-steroidal anti-inflammatories (NSAID); Z79.899 Other long term (current) drug therapy; Z79.890 Hormone replacement therapy; Z88.1 Allergy status to other antibiotic agents; Z88.5 Allergy status to narcotic agent; Z91.048 Other nonmedicinal substance allergy status
CPT/HCPCS: 86677; J2704; J3010; J7121

== ENCOUNTER 2020-12-24 13:49 | Emergency (ER) | payer OTHER ==
[~2020-12-24] VITALS: Ht 165.1 cm; Wt 102.1 kg
--- NOTE | 2020-12-24 16:57 | EKG ---
[facility] [address] [facility] [place], [place] [address] Signed Sinus rhythm with marked sinus arrhythmia Low voltage QRS Cannot rule out Anterior infarct , age undetermined Abnormal ECG No previous ECGs available Confirmed by FADUMO BOSWELL MD ([id number] on 12/24/2020 4:57:05 PM Electronically Signed By: FADUMO BOSWELL MD 12/24/20 1657 PATIENT NAME: CLAUDIO LANZA Electrocardiogram DATE OF : 74 PHYSICIAN: FADUMO BOSWELL MD REPORT #: [id number] REPORT IS CONFIDENTIAL AND NOT TO BE RELEASED WITHOUT AUTHORIZATION
== END 2020-12-24 16:02 | disposition home or self-care (01) ==
LOC: ED 13:49
DX: K21.9 Gastro-esophageal reflux disease without esophagitis (principal); R07.89 Other chest pain; E03.9 Hypothyroidism, unspecified; F17.200 Nicotine dependence, unspecified, uncomplicated; Z88.8 Allergy status to other drugs, medicaments and biological substances; Z91.048 Other nonmedicinal substance allergy status; Z88.1 Allergy status to other antibiotic agents; Z79.899 Other long term (current) drug therapy
CPT/HCPCS: 71045; 80053; 83735; 84484; 85025; 93005; 93010; 99285-25

== ENCOUNTER → 2020-12-25 | Emergency (ER) | payer OTHER ==
[~2020-12-25] VITALS: Ht 165.1 cm; Wt 102.1 kg
--- OUTSIDE RECORDS SUMMARY | 2020-12-25 21:58 | XMS ---
PreManage Notification: CLAUDIO LANZA Security Lighter Events No recent Security Events currently on file CRITERIA MET - [facility] - 2 Visits in 30 Days CARE PROVIDERS There are no care providers on record at this time. Tiffani has no Care Guidelines for this patient. Lachelle VISIT COUNT (12 MO.) [address] [facility] TOTAL 3 NOTE: Visits indicate total known visits. ED/C VISIT TRACKING (12 MO.) 12/25/2020 21:53 [facility] TYPE: Emergency COMPLAINT: - CHEST TIGHTNESS 12/25/2020 18:19 [facility] TYPE: Emergency COMPLAINT: - THROAT PROBLEM 12/24/2020 13:50 [facility] [place] TYPE: Emergency COMPLAINT: - NECK PREASURE, SOB INPATIENT VISIT TRACKING (12 MO.) No inpatient visits to display in this time frame [email or web address]
--- NOTE | 2020-12-26 22:46 | EKG ---
[facility] [address] [facility] [place] [address] Signed Sinus tachycardia Low voltage QRS ST elevation, consider inferior injury or acute infarct ACUTE NH / STEMI Consider right ventricular involvement in acute inferior infarct Abnormal ECG When compared with ECG of 24-DEC-2020 13:58, ST elevation now present in Inferior leads Nonspecific T wave abnormality now evident in Lateral leads Confirmed by FADUMO BOSWELL MD ([id number]) on 12/26/2020 10:46:01 PM Electronically Signed By: FADUMO BOSWELL MD 12/26/20 2246 PATIENT NAME: CLAUDIO LANZA Electrocardiogram DATE OF : 74 PHYSICIAN: FADUMO BOSWELL MD REPORT #: [id number] REPORT IS CONFIDENTIAL AND NOT TO BE RELEASED WITHOUT AUTHORIZATION
== END ==
LOC: ED 21:53
DX: I21.3 ST elevation (STEMI) myocardial infarction of unspecified site (principal); Z20.822 Contact with and (suspected) exposure to COVID-19; E03.9 Hypothyroidism, unspecified; F17.200 Nicotine dependence, unspecified, uncomplicated; Z88.8 Allergy status to other drugs, medicaments and biological substances; Z88.1 Allergy status to other antibiotic agents; Z91.048 Other nonmedicinal substance allergy status; Z79.899 Other long term (current) drug therapy
CPT/HCPCS: 71045; 80053; 83735; 84484; 85025; 93005; 93010; 96374; 99285-25; C9803; J1644; U0003